=== PATIENT | female | born 1970 | race African-American/Black ===

== ENCOUNTER 2016-05-06 01:53 | Emergency (ER) | payer OTHER, SELFPAY ==
[~2016-05-06] VITALS: Ht 172.7 cm; Wt 106.6 kg
[~2016-05-06 01:53] MED LIST: ACETAMINOPHEN-1 EAC1 ORAL; BACITRACIN ZIN120 GM TP; BACTRIM DS TAB1 EAC1 ORAL; BENADRYL25 MG ORAL; DIFLUCAN100 MG ORAL; HCTZ PO; HYDROCHLOROTH12.5 M2 ORAL; HYDROCORTISONE30 G2 RC; IBUPROFEN800 MG ORAL; METROGEL-VAGINA70 G1 VG; NORCO 5-325 TA1 EACH ORAL; PREDNISONE50 MG ORAL; PREVACID30 MG ORAL; VIBRAMYCIN100 MG ORAL
--- NOTE | 2016-05-06 02:50 | Emergency Room Report ---
History of Present Illness General Chief Complaint: Vaginal Source: Patient Present Illness HPI This is a 45-year-old female with a history of DVT on Elliquis. She presents with chief complaint of vaginal itching and discharge. Onset for last 3 days. Denies any fever or chills. Denies any nausea vomiting. Also said that she has a boil in the perineal area. She also has other complaints of phlegm dehydrated and flushed. Denies any shortness of breath. Denies any nausea vomiting. Denies any other complaint. Allergies: Coded Allergies: PENICILLINS (Verified Allergy, Unknown, 09/26/15) Patient History Past Medical History: see triage record, old chart reviewed, HTN Past Surgical History: other Pertinent Family History: none Social History: Denies: smoking Last Menstrual Period: unk Now: No Immunizations: other Reviewed Nursing Documentation: PMH: Agreed, PSxH: Agreed Nursing Documentation-PMH Hx Hypertension: Yes Hx Gastrointestinal Problems: Yes - GERD, Gallbladder removed Review of Systems Constitutional: Reports: malaise Eye: Denies: blurred vision, eye pain ENT: Denies: ear pain, nose congestion, throat swelling Respiratory: Denies: cough, shortness of breath Cardiovascular: Denies: chest pain, palpitations Gastrointestinal: Denies: abdominal pain, diarrhea, nausea, vomiting Genitourinary: Reports: discharge Musculoskeletal: Denies: back pain, joint pain Skin: Denies: rash Neurological: Denies: headache, numbness Endocrine: Denies: increased thirst, increased urine Hematologic/Lymphatic: Denies: easy bruising All Other Systems: negative except mentioned in HPI Physical Exam Vital Signs Date Time Temp Pulse Resp B/P Pulse Ox O2 Delivery O2 Flow Rate FiO2 05/06/16 02:10 98.2 79 16 153/77 100 Room Air vitals with hypertension Sp02 EP Interpretation: reviewed, normal General Appearance: well appearing, no apparent distress, alert, obese Head: normocephalic, atraumatic Eyes: bilateral eye EOMI, bilateral eye PERRL ENT: hearing grossly normal, normal pharynx Neck: full range of motion, supple, no meningismus Respiratory: chest non-tender, lungs clear, normal breath sounds Cardiovascular #1: regular rate, rhythm, no murmur Gastrointestinal: normal bowel sounds, non tender, no mass, no organomegaly, no bruit, non-distended Genitourinary: other - 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 whitish dc. no abscess. Musculoskeletal: back normal, gait/station normal, normal range of motion Neurologic: alert, oriented x3 Psychiatric: mood/affect normal Skin: warm/dry Medical Decision Making Diagnostic Impression: Primary Impression: Vaginitis Additional Impression: Hypertension Qualified Codes: I10 - Essential (primary) hypertension ER Course Patient presents with a vaginitis. She said she has a history of bacterial vaginosis. She is sexually active with one partner. No evidence of STD. No evidence of urine tract infection. She is no longer anemic. Told she can stop the iron. She may be menopausal. Last Vital Signs Date Time Temp Pulse Resp B/P Pulse Ox O2 Delivery O2 Flow Rate FiO2 05/06/16 02:10 98.2 79 16 153/77 100 Room Air Status: improved Disposition: HOME, SELF-CARE Condition: Stable Scripts Metronidazole* (FLAGYL*) 500 Mg Tablet 500 MG ORAL BID, #14 TAB Prov: SALINA DE LA CRUZ M.D. 05/06/16 Additional Instructions: Followup with your DrJohn in 7 days. Return if symptom worsen. You are no longer anemic. You can stop the iron tablet. SALINA DE LA CRUZ M.D. May 06, 2016 02:50
[2016-05-06 03:06] LABS: APPEARANCE,URINE CLEAR; KETONES,URINE NEGATIVE (NEGATIVE); LEUKOCYTE ESTERASE ,URINE 1+ (NEGATIVE); NITRITE,URINE NEGATIVE (NEGATIVE); PH,URINE 5 (4.5-8.0); PROTEIN,URINE NEGATIVE (NEGATIVE); UROBILINOGEN,URINE NORMAL MG/DL (0.0-1.0)
[2016-05-06 03:25] LABS: BASOPHILS % (AUTO) 1.2 % (0.0-2.0); EOSINOPHILS % (AUTO) 0.7 % (0.0-3.0); MEAN CORPUSCULAR HEMOGLOBIN 31.5 PG (27.0-31.0); MEAN CORPUSCULAR HGB CONC 32.5 G/DL (32.0-36.0); MEAN CORPUSCULAR VOLUME 97 FL (80-99); MEAN PLATELET VOLUME 6.2 FL (6.5-10.1); NEUTROPHILS % (AUTO) 42.1 % (45.0-75.0); PLATELET COUNT 319 K/UL (150-450); RED BLOOD COUNT 4.45 M/UL (4.20-5.40); WHITE BLOOD COUNT 8.9 K/UL (4.8-10.8)
[2016-05-06 03:26] LABS: RBC,URINE 0-2 /HPF (0 - 2); SQUAMOUS EPITHELIAL CELL,UR FEW /LPF (NONE/OCC)
[2016-05-06 03:27] LABS: BACTERIA,URINE OCCASIONAL /HPF; CALCIUM OXALATE CRYSTALS,UR MODERATE /LPF; MUCUS,URINE FEW /LPF (NONE/OCC)
[2016-05-06 03:51] LABS: ANION GAP 15 (5-15); CALCIUM 9.6 mg/dL (8.6-10.2); CARBON DIOXIDE 29 mEQ/L (20-30); CHLORIDE 95 mEQ/L (98-107); CREATININE 0.7 mg/dL (0.5-0.9); GLOMERULAR FILTRATION RATE > 60 mL/min (>60); HEMOLYSIS 6; POTASSIUM 3.8 mEQ/L (3.4-4.9); SODIUM 139 mEQ/L (135-145)
[2016-05-06] MEDS ORDERED: Mylanta II UD 30ml ORAL ONE (04:00)
[2016-05-06] MEDS ORDERED: METRONIDAZOLE500 MG ORAL (04:01)
[2016-05-06 04:05] VITALS: BP 125/79
[2016-05-06 04:11] VITALS: BP 125/79
== END 2016-05-06 07:47 | disposition home or self-care (01) ==
LOC: EMR 02:30
DX: N76.0 Acute vaginitis (principal); I10 Essential (primary) hypertension; Z88.0 Allergy status to penicillin
CPT/HCPCS: 36415; 80048; 81001; 81025; 85025; 87210; 99283

== ENCOUNTER 2018-12-01 21:35 | Emergency (ER) | payer OTHER ==
[~2018-12-01] VITALS: Ht 172.7 cm; Wt 90.7 kg
[~2018-12-01 21:35] MED LIST changes: +METRONIDAZOLE500 MG ORAL
--- NOTE | 2018-12-01 21:35 | NUR ---
ED Nurse Note: Patient biba RA from home c/o bilateral leg pain, the left calf is more swollen than the other, patient does have a history of DVT. patient is alert and oriented x4, complains of 8/10 pain, patient denies any travel within the last month and denies being bed bound.
[2018-12-01 21:40] VITALS: BP 119/80
[2018-12-01] MEDS ORDERED: Mylanta II UD 30ml ORAL ONE (22:00)
[2018-12-01] MEDS ORDERED: Lidocaine 2% Visc 15ml soln ORAL ONE (22:00)
--- NOTE | 2018-12-01 22:07 | Emergency Room Report ---
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 She also. She presents with chief complaint of left leg swelling. She been on her feet more. Has been more swollen in the last week. No fever chills but no nausea no vomiting. She also has a history of acid reflux and takes Zantac and Protonix. She is asking for GI cocktail also. Denies any chest pain. Denies any trauma. Pain is 5 out of 10. Allergies: Coded Allergies: PENICILLINS (Verified Allergy, Unknown, 09/26/15) Patient History Past Medical History: see triage record, old chart reviewed Past Surgical History: none Pertinent Family History: none Social History: Denies: smoking Now: No Immunizations: other Reviewed Nursing Documentation: PMH: Agreed; PSxH: Agreed Nursing Documentation-PMH Past Medical History: No History, Except For Hx Hypertension: Yes - hx dvt Hx Gastrointestinal Problems: Yes - GERD, Gallbladder removed Review of Systems Eye: Denies: eye pain, blurred vision ENT: Denies: ear pain, nose congestion, throat swelling Respiratory: Denies: cough, shortness of breath Cardiovascular: Denies: chest pain, palpitations Gastrointestinal: Denies: abdominal pain, diarrhea, nausea, vomiting Musculoskeletal: Denies: back pain, joint pain Skin: Denies: rash Neurological: Denies: headache, numbness Endocrine: Denies: increased thirst, increased urine Hematologic/Lymphatic: Denies: easy bruising All Other Systems: negative except mentioned in HPI Physical Exam Vital Signs Date Time Temp Pulse Resp B/P (MAP) Pulse Ox O2 Delivery O2 Flow Rate FiO2 12/01/18 21:29 98.1 89 18 119/80 (93) 99 Room Air vitals normal Sp02 EP Interpretation: reviewed, normal General Appearance: well appearing, no apparent distress, alert Head: normocephalic, atraumatic Eyes: bilateral eye PERRL, bilateral eye EOMI ENT: hearing grossly normal, normal pharynx Neck: full range of motion, supple, no meningismus Respiratory: chest non-tender, lungs clear, normal breath sounds Cardiovascular #1: regular rate, rhythm, no murmur Gastrointestinal: normal bowel sounds, non tender, no mass, no organomegaly, no bruit, non-distended Musculoskeletal: back normal, gait/station normal, normal range of motion, other - Extremity with 1+ pitting edema Neurologic: alert, responsive Psychiatric: mood/affect normal Medical Decision Making Diagnostic Impression: Primary Impression: Chronic deep vein thrombosis (DVT) Qualified Codes: I82.5Z2 - Chronic embolism and thrombosis of unspecified deep veins of left distal lower extremity Additional Impression: Leg pain, left ER Course With left leg pain and edema. Ultrasound showed chronic DVT. She is already on Xarelto. No need for acute intervention. Will discharge home. CT/MRI/US Diagnostic Results CT/MRI/US Diagnostic Results : Imaging Test Ordered: Ultrasound left lower extremity Impression chronic DVT per marketing account executive Last Vital Signs Date Time Temp Pulse Resp B/P (MAP) Pulse Ox O2 Delivery O2 Flow Rate FiO2 12/01/18 21:29 98.1 89 18 119/80 (93) 99 Room Air Status: unchanged Disposition: HOME, SELF-CARE Condition: Stable Scripts Tramadol Hcl* (ULTRAM*) 50 Mg Tablet 50 MG ORAL Q6H PRN for For Pain, #15 TAB 0 Refills Prov: Marcin De La Fuente MD 12/01/18 Additional Instructions: Elevate leg. Wear your support stocking. Follow-up with your doctor in 7 days. Return if worse. Marcin De La Fuente MD Dec 01, 2018 22:07
[2018-12-01 23:00] VITALS: BP 119/80
[2018-12-01] MEDS ORDERED: TRAMADOL HCL50 MG ORAL (23:19)
--- NOTE | 2018-12-01 23:20 | NUR ---
ER DISCHARGE NOTE: Patient is cleared to be discharged per ERMD, pt is aox4, on room air, with stable vital signs. pt was given dc and prescription instructions, pt was able to verbalize understanding, pt id band removed without complications. pt is able to ambulate with steady gait. pt took all belongings.
--- NOTE | 2018-12-02 00:08 | Diagnostic Imaging Report ---
Indication: Left leg pain Technique: Grayscale and duplex images of the left lower extremity veins Comparison: none Findings: Thrombus is seen within the left popliteal, femoral, superficial femoral veins. This appears to be occlusive in the popliteal and upstream femoral veins, incompletely occlusive in the downstream femoral and common femoral veins. Due to patient's body habitus and considerable subcutaneous edema, the calf veins a poorly visualized Impression: Positive for age-indeterminate deep venous thrombus involving the left popliteal, femoral, and common femoral veins. This agrees with the preliminary interpretation provided overnight by [facility] teleradiology service.
== END 2018-12-01 23:00 | disposition home or self-care (01) ==
LOC: EDBD 21:35 → EMR 21:58
DX: I82.5Z2 Chronic embolism and thrombosis of unspecified deep veins of left distal lower extremity (principal); M79.605 Pain in left leg; K21.9 Gastro-esophageal reflux disease without esophagitis; Z90.49 Acquired absence of other specified parts of digestive tract; Z88.0 Allergy status to penicillin
CPT/HCPCS: 93971; Z7502; 99284